=== PATIENT | male | born 1995 | race Two or more races ===

== ENCOUNTER 2016-10-30 22:23 | Emergency (ER) | payer OTHER ==
[2016-10-30 22:28] VITALS: TEMP 98.4
--- NOTE | 2016-10-30 23:12 | EDPHY ---
H & P Time Seen by Provider: 10/30/16 22:33 HPI/ROS: CHIEF COMPLAINT: Left arm swelling HISTORY OF PRESENT ILLNESS: 21-year-old male presents emergency department concerned about his left arm swelling. Patient reports 5 days ago he started lifting weights. He has lifted biceps and triceps every day for the past 5 days. Patient states yesterday both his arms were so sore he could not straighten them. Today he lifted weights again. Pt noticed this evening that his left arm was swollen. He denies numbness or tingling in this arm, no fevers , mild tenderness to palpation though not as sore as yesterday. Smoking Status: Never smoked Physical Exam: Physical Exam Gen: Alert and Oriented, NAD HEENT: PERRL, moist mucous membranes NECK: no meningismus CV: regular rate and regular rhythm PULM: CTAB, no wheezes ABDOMEN: soft, non tender to palpation, BS present BACK: No CVA tenderness NEURO: Neurologically grossly intact EXTREMITIES: Left arm with full flexion, extension, pronation and supination, mild swelling from mid forearm to mid biceps, compartments are soft, mild tenderness to palpation, no lymphangitic streaking, no axillary tenderness, 2+ radial pulses, sensation intact to light touch SKIN: no rash or break in skin on exposed skin PSYCH: answers questions appropriately. Constitutional: Initial Vital Signs Temperature (C) 36.9 C 10/30/16 22:25 Heart Rate 100 10/30/16 22:25 Respiratory Rate 18 10/30/16 22:25 Blood Pressure 151/88 H 10/30/16 22:25 O2 Sat (%) 95 10/30/16 22:25 O2 Delivery Mode Room Air Allergies/Adverse Reactions: FUCIDINE Allergy (Mild, Uncoded 03/03/16 18:37) Itching Home Medications: Medication Instructions Recorded NK [No Known Home Meds] 10/30/16 MDM/Departure - MDM ED Course/Re-evaluation: 21-year-old male presents to the emergency department with left arm swelling after lifting weights for the last 5 days after months of not lifting weights. Patient has left arm swelling, no evidence of cellulitis, no evidence of compartment syndrome. He will be discharged home with instructions to hydrate, rest, ice and elevate. He is given return precautions for worsening symptoms, fevers, redness, dark urine. Diagnosis considered but not limited to compartment syndrome, cellulitis, myositis, fracture, rhabdomyolysis. - Depart Disposition: Home, Routine, Self-Care Clinical Impression: Left arm swelling Condition: Good Instructions: Muscle Strain (ED) Additional Instructions: Rest, ice, elevate, take 650 mg of Tylenol every 8 hours as needed for pain. Drink plenty of water. Return to the emergency department for increasing pain, swelling, redness, fevers, difficulty urinating, brown urine, fatigue. Referrals: NONE *PRIMARY CARE P,. [Primary Care Provider] - As per Instructions
[2016-10-30 23:33] VITALS: BP 141/81; PULSE 88; RESP 16; O2SAT 96
== END 2016-10-30 23:32 | disposition home or self-care (01) ==
DX: M79.89 Other specified soft tissue disorders (principal)